=== PATIENT | male | born 1965 | race Caucasian/White ===

== ENCOUNTER 2020-02-06 15:17 | Observation (INO) | payer OTHER ==
[~2020-02-06] VITALS: Ht 190.5 cm; Wt 121.7 kg
[~2020-02-06 15:17] MED LIST: DOCU100 PO; HYDACE5; LEVO750 PO; Proventil2.5 MG/3 M INH; Tessalon Perle100 MG PO; Zithromax250 MG PO
[2020-02-06] MEDS ORDERED: POTCHL20ER PO (15:24)
[2020-02-06] MEDS ORDERED: FURO40 PO (15:24)
[2020-02-06 15:43] LABS: BASOPHILS ABSOLUTE AUTO 0.06 K/mm3 (0.00-0.23); BASOPHILS PERCENT AUTO 1 % (0-2); EOSINOPHILS ABSOLUTE AUTO 0.09 K/mm3 (0.00-0.68); EOSINOPHILS PERCENT AUTO 1 % (0-6); Hematocrit 48.9 % (37.0-53.0); Hemoglobin 14.5 g/dL (13.5-17.5); IMMATURE GRAN ABSOLUTE AUTO 0.03 K/mm3 (0.00-0.10); IMMATURE GRAN PERCENT AUTO 0 % (0-1); LYMPHOCYTES ABSOLUTE AUTO 0.86 K/mm3 (0.84-5.20); LYMPHOCYTES PERCENT AUTO 12 % (21-46); MONOCYTES ABSOLUTE AUTO 0.51 K/mm3 (0.16-1.47); MONOCYTES PERCENT AUTO 7 % (4-13); Mean Corpuscular HGB 29.5 pg (26.0-34.0); Mean Corpuscular HGB Conc 29.7 g/dL (31.5-36.5); Mean Corpuscular Volume 100 fL (80-100); Mean Platelet Volume 11.4 fL (9.1-12.4); NEUTROPHILS ABSOLUTE AUTO 5.85 K/mm3 (1.96-9.15); NEUTROPHILS PERCENT AUTO 79 % (41-73); Platelet Count 210 K/mm3 (150-400); RDW Coefficient Variation 13.6 % (11.7-14.2); RDW Standard Deviation 50.6 fL (35.1-46.3); Red Blood Cell Count 4.91 M/mm3 (4.30-5.90)
[2020-02-06 16:04] LABS: Alanine Aminotransfer (ALT/SGP 24 U/L (12-78); Albumin, Blood 2.9 g/dL (3.4-5.0); Albumin/Globulin Ratio 0.9 (0.8-1.8); Alk Phos 150 U/L (50-136); Anion Gap 2 mmol/L (6-16); Aspartate Aminotrans (AST/SGOT 23 U/L (12-37); Bilirubin, Total 0.5 mg/dL (0.1-1.0); Blood Urea Nitrogen 14 mg/dL (8-24); Bun/Creatinine Ratio 18.3 (12.0-20.0); CO2, Blood 30 mmol/L (21-32); Calcium, Blood 8.5 mg/dL (8.5-10.1); Chloride, Blood 112 mmol/L (98-108); Creatinine, Blood 0.76 mg/dL (0.60-1.20); Globulin, Blood 3.4 g/dL (2.2-4.0); Glomerular Filtration Rate >60 (60-); Glucose, Blood 132 mg/dL (70-99); Potassium, Blood 4.3 mmol/L (3.5-5.5); Sodium, Blood 144 mmol/L (136-145); Total Protein, Blood 6.3 g/dL (6.4-8.2); Troponin I 0.042 ng/mL (0.000-0.040)
--- NOTE | 2020-02-06 19:11 | NUR ---
PT ADMITTED TO PCU FROM ER FOR SVT. PT ARRIVES AT 1850. PT ALERT, DENIES CP, SOB OR OTHER SYMPTOMS. TRANSFERRED TO BED VIA SLIDER SHEET. SO STATES PT DIFFICULT TRANSFER AND USES SCOOTER AT HOME. ORIENTED TO ROOM AND CALL LIGHT. VSS. WILL REPORT TO ONCOMING NURSE.
--- NOTE | 2020-02-07 07:32 | NUR ---
SHIFT SUMMARY PATIENT PLEASENT THROUGHOUT THE NIGHT. PATIENT SPEECH DIFFICULT TO UNDERSTAND AT TIMES DUE TO GARBBLED SPEECH, HOWEVER, PATIENT IS ABLE TO MAKE HIS NEEDS KNOWN. PATIENT REFUSED REPOSITIONING MOST OF THE NIGHT. PATIENT APPEARED TO NAP ON AND OFF WELL THROUGHOUT THE NIGHT. PATIENT HAS MINIMAL MOVEMENT TO LEFT ARM AND GROSS MOVMENT TO RIGHT ARM. MINIMAL MOVMENT NOTED TO BILATERAL LOWER EXTREMETIES. VITAL SIGNS CHARTED. REPORT GIVEN TO ONCOMING RN.
[2020-02-07] MEDS ORDERED: METO25ER PO (11:01)
--- NOTE | 2020-02-07 11:09 | NUR ---
CARE ASSUMED ASSESSMENT COMPLETED, PT ALERT AND ORIENTED, DEMANDING. DENIES PAIN, SOB, CP/PRESSURE, PALPITATIONS, AND DISCOMFORT. VSS, HR 50'S SBR, METOPROLOL ADMINISTERED FOR RATE CONTROL. PT REFUSES LOVENOX. ECHO COMPLETED, DR. JONES AWARE OF RESULTS AND IN TO DISCUSS PLAN OF CARE WITH PATIENT. TOLERATED BREAKFAST WITHOUT DIFFICUTLY, RESTING IN BED WITHOUT C/O, UPDATED.
[2020-02-07] MEDS ORDERED: ASPI81CH PO (11:23)
--- NOTE | 2020-02-07 13:05 | NUR ---
DISCHARGE AT 1215 PT CONTINUES TO DENY SOB, CP, PALPITATIONS. HR 50'S SINUS, BP WNL. IV DC'D WITH TIP INTACT, PRESSURE DRESSING APPLIED. PT ASSISTED TO DRESS AND GET INTO WC WITH MAX 2 PERSON ASSIST. DC, F/U AND MED INSTRUCTIONS GIVEN TO PT AND WHO IS AT BEDSIDE, BOTH VERBALIZE UNDERSTANDING. RX'S SENT TO [facility], [facility] TO NON DESTRUCTIVE EVALUATION MANAGER LATER TODAY. PT DISCHARGED TO HOME WITH AND BROTHER IN LAW WITH BELONGINGS, BROTHER IN LAW TO DRIVE PT HOME IN THEIR WC VAN.
[2020-02-19] MEDS ORDERED: FENTANYL1 EA12 TOP (09:28)
[2020-02-19] MEDS ORDERED: HYDR1TAB94 PO (09:29)
[2020-02-19] MEDS ORDERED: NYSTOP15 GM TOP (09:30)
[2020-02-19] MEDS ORDERED: IBUP600 PO (09:30)
[2020-02-19] MEDS ORDERED: ONDA4ODT MM (09:31)
[2020-02-19] MEDS ORDERED: ACET325 PO (09:32)
[2020-02-19] MEDS ORDERED: ACIDOPHILUS1 EAC1 PO (09:32)
== END 2020-02-07 12:10 | disposition home or self-care (01) ==
LOC: ER 15:17 → PCU 15:18
PROVIDERS: Emergency Medicine; ADMIT Hospitalist
DX: I47.1 Supraventricular tachycardia (principal); R79.89 Other specified abnormal findings of blood chemistry; I69.354 Hemiplegia and hemiparesis following cerebral infarction affecting left non-dominant side; G71.11 Myotonic muscular dystrophy; I45.2 Bifascicular block; R05 Cough; J98.11 Atelectasis; E04.2 Nontoxic multinodular goiter; Z66 Do not resuscitate; Z88.0 Allergy status to penicillin; Z87.891 Personal history of nicotine dependence; Z74.01 Bed confinement status
CPT/HCPCS: 36415; 71045; 71260; 80053; 83880; 84145; 84443; 84484; 85025; 93005; 93010; 93306; 96374; 99285-25; A9270-GY; G0378; J0153; J7030; Q9967

== ENCOUNTER 2020-02-23 14:58 | Emergency (ER) | payer OTHER ==
[~2020-02-23] VITALS: Ht 190.5 cm; Wt 106.6 kg
[~2020-02-23 14:58] MED LIST changes: +ACET325 PO; +ACIDOPHILUS1 EAC1 PO; +ASPI81CH PO; +FENTANYL1 EA12 TOP; +FURO40 PO; +HYDR1TAB94 PO; +IBUP600 PO; +METO25ER PO; +NYSTOP15 GM TOP; +ONDA4ODT MM; +POTCHL20ER PO
[2020-02-23] MEDS ORDERED: METO25ER PO (15:51)
[2020-02-23] MEDS ORDERED: ASPI81CH PO (15:51)
[2020-02-23] MEDS ORDERED: POTCHL20ER PO (15:52)
[2020-02-23] MEDS ORDERED: FURO20 PO (15:52)
[2020-02-23] MEDS ORDERED: LACT PO (15:53)
[2020-02-23] MEDS ORDERED: HYDROCODONE-AC1 EAC8 PO (15:54)
[2020-02-23] MEDS ORDERED: FENTANYL1 EAC9 TOP (15:54)
== END 2020-02-23 16:36 | disposition home or self-care (01) ==
LOC: ER 14:58
DX: F43.9 Reaction to severe stress, unspecified (principal); I10 Essential (primary) hypertension; Z88.0 Allergy status to penicillin; Z79.82 Long term (current) use of aspirin; Z86.73 Personal history of transient ischemic attack (TIA), and cerebral infarction without residual deficits; Z79.899 Other long term (current) drug therapy; Z87.891 Personal history of nicotine dependence
CPT/HCPCS: 99285

== ENCOUNTER → 2020-03-14 | Outpatient (CLI) | payer OTHER ==
[~2020-03-14] MED LIST changes: +FENTANYL1 EAC9 TOP; +FURO20 PO; +HYDROCODONE-AC1 EAC8 PO; +LACT PO
[2020-03-14 10:01] LABS: BASOPHILS ABSOLUTE AUTO 0.06 K/mm3 (0.00-0.23); BASOPHILS PERCENT AUTO 1 % (0-2); EOSINOPHILS ABSOLUTE AUTO 0.15 K/mm3 (0.00-0.68); EOSINOPHILS PERCENT AUTO 3 % (0-6); Hematocrit 50.2 % (37.0-53.0); Hemoglobin 15.1 g/dL (13.5-17.5); IMMATURE GRAN ABSOLUTE AUTO 0.02 K/mm3 (0.00-0.10); IMMATURE GRAN PERCENT AUTO 0 % (0-1); LYMPHOCYTES ABSOLUTE AUTO 0.86 K/mm3 (0.84-5.20); LYMPHOCYTES PERCENT AUTO 17 % (21-46); MONOCYTES ABSOLUTE AUTO 0.46 K/mm3 (0.16-1.47); MONOCYTES PERCENT AUTO 9 % (4-13); Mean Corpuscular HGB 29.3 pg (26.0-34.0); Mean Corpuscular HGB Conc 30.1 g/dL (31.5-36.5); Mean Corpuscular Volume 98 fL (80-100); Mean Platelet Volume 12.1 fL (9.1-12.4); NEUTROPHILS ABSOLUTE AUTO 3.42 K/mm3 (1.96-9.15); NEUTROPHILS PERCENT AUTO 69 % (41-73); Platelet Count 155 K/mm3 (150-400); RDW Standard Deviation 50.4 fL (35.1-46.3); Red Blood Cell Count 5.15 M/mm3 (4.30-5.90); White Blood Cell Count 4.97 K/mm3 (4.00-11.30)
[2020-03-14 10:41] LABS: Alanine Aminotransfer (ALT/SGP 22 U/L (12-78); Albumin/Globulin Ratio 1.1 (0.8-1.8); Alk Phos 121 U/L (50-136); Anion Gap 4 mmol/L (6-16); Aspartate Aminotrans (AST/SGOT 19 U/L (12-37); Bilirubin, Total 0.5 mg/dL (0.1-1.0); Blood Urea Nitrogen 23 mg/dL (8-24); Bun/Creatinine Ratio 25.6 (12.0-20.0); CO2, Blood 36 mmol/L (21-32); Calcium, Blood 8.9 mg/dL (8.5-10.1); Chloride, Blood 103 mmol/L (98-108); Globulin, Blood 2.7 g/dL (2.2-4.0); Glomerular Filtration Rate >60 (60-); Glucose, Blood 102 mg/dL (70-99); Sodium, Blood 143 mmol/L (136-145); Total Protein, Blood 5.7 g/dL (6.4-8.2)
[2020-03-14 10:46] LABS: Anion Gap 4 mmol/L (6-16); Blood Urea Nitrogen 23 mg/dL (8-24); Bun/Creatinine Ratio 25.4 (12.0-20.0); CO2, Blood 36 mmol/L (21-32); Calcium, Blood 9.1 mg/dL (8.5-10.1); Chloride, Blood 103 mmol/L (98-108); Creatinine, Blood 0.91 mg/dL (0.60-1.20); Glomerular Filtration Rate >60 (60-); Glucose, Blood 100 mg/dL (70-99); Phosphorus, Blood 2.9 mg/dL (2.5-4.9); Sodium, Blood 143 mmol/L (136-145)
== END | disposition home or self-care (01) ==
LOC: LAB RH 08:06 → EDSTATUS 09:48
PROVIDERS: Family Medicine
DX: E87.70 Fluid overload, unspecified (principal); E11.51 Type 2 diabetes mellitus with diabetic peripheral angiopathy without gangrene; B99.9 Unspecified infectious disease
CPT/HCPCS: 80053; 80069; 83036; 83880; 84100; 85025

== ENCOUNTER → 2020-03-22 | Outpatient (CLI) | payer OTHER ==
[2020-03-22 12:58] LABS: BASOPHILS ABSOLUTE AUTO 0.06 K/mm3 (0.00-0.23); BASOPHILS PERCENT AUTO 1 % (0-2); EOSINOPHILS ABSOLUTE AUTO 0.24 K/mm3 (0.00-0.68); EOSINOPHILS PERCENT AUTO 5 % (0-6); Hematocrit 51.3 % (37.0-53.0); Hemoglobin 15.2 g/dL (13.5-17.5); IMMATURE GRAN ABSOLUTE AUTO 0.06 K/mm3 (0.00-0.10); IMMATURE GRAN PERCENT AUTO 1 % (0-1); LYMPHOCYTES ABSOLUTE AUTO 0.61 K/mm3 (0.84-5.20); LYMPHOCYTES PERCENT AUTO 12 % (21-46); MONOCYTES ABSOLUTE AUTO 0.52 K/mm3 (0.16-1.47); MONOCYTES PERCENT AUTO 10 % (4-13); Mean Corpuscular HGB 29.5 pg (26.0-34.0); Mean Corpuscular HGB Conc 29.6 g/dL (31.5-36.5); Mean Corpuscular Volume 99 fL (80-100); Mean Platelet Volume 12.6 fL (9.1-12.4); NEUTROPHILS ABSOLUTE AUTO 3.71 K/mm3 (1.96-9.15); NEUTROPHILS PERCENT AUTO 71 % (41-73); Platelet Count 103 K/mm3 (150-400); RDW Coefficient Variation 15.1 % (11.7-14.2); RDW Standard Deviation 55.6 fL (35.1-46.3); Red Blood Cell Count 5.16 M/mm3 (4.30-5.90)
[2020-03-22 14:23] LABS: Alanine Aminotransfer (ALT/SGP 16 U/L (12-78); Albumin/Globulin Ratio 1.2 (0.8-1.8); Alk Phos 119 U/L (50-136); Anion Gap 5 mmol/L (6-16); Aspartate Aminotrans (AST/SGOT 13 U/L (12-37); Bilirubin, Total 0.6 mg/dL (0.1-1.0); Blood Urea Nitrogen 19 mg/dL (8-24); Bun/Creatinine Ratio 17.9 (12.0-20.0); CO2, Blood 34 mmol/L (21-32); Calcium, Blood 8.6 mg/dL (8.5-10.1); Chloride, Blood 103 mmol/L (98-108); Creatinine, Blood 1.06 mg/dL (0.60-1.20); Globulin, Blood 2.5 g/dL (2.2-4.0); Glomerular Filtration Rate >60 (60-); Glucose, Blood 102 mg/dL (70-99); Potassium, Blood 3.9 mmol/L (3.5-5.5); Sodium, Blood 142 mmol/L (136-145); Total Protein, Blood 5.5 g/dL (6.4-8.2)
== END | disposition home or self-care (01) ==
LOC: EDSTATUS 09:51 → LAB RH 11:07
PROVIDERS: Family Medicine
DX: I69.353 Hemiplegia and hemiparesis following cerebral infarction affecting right non-dominant side (principal); G71.11 Myotonic muscular dystrophy; E88.81 Metabolic syndrome and other insulin resistance; E11.9 Type 2 diabetes mellitus without complications
CPT/HCPCS: 80053; 83880; 85025

== ENCOUNTER → 2020-03-29 | Outpatient (CLI) | payer OTHER ==
[2020-03-29 09:18] LABS: BASOPHILS ABSOLUTE AUTO 0.05 K/mm3 (0.00-0.23); BASOPHILS PERCENT AUTO 1 % (0-2); EOSINOPHILS ABSOLUTE AUTO 0.26 K/mm3 (0.00-0.68); EOSINOPHILS PERCENT AUTO 6 % (0-6); Hematocrit 51.8 % (37.0-53.0); Hemoglobin 15.6 g/dL (13.5-17.5); IMMATURE GRAN ABSOLUTE AUTO 0.05 K/mm3 (0.00-0.10); IMMATURE GRAN PERCENT AUTO 1 % (0-1); LYMPHOCYTES ABSOLUTE AUTO 0.84 K/mm3 (0.84-5.20); LYMPHOCYTES PERCENT AUTO 19 % (21-46); MONOCYTES ABSOLUTE AUTO 0.46 K/mm3 (0.16-1.47); MONOCYTES PERCENT AUTO 11 % (4-13); Mean Corpuscular HGB 29.4 pg (26.0-34.0); Mean Corpuscular HGB Conc 30.1 g/dL (31.5-36.5); Mean Corpuscular Volume 98 fL (80-100); Mean Platelet Volume 12.3 fL (9.1-12.4); NEUTROPHILS ABSOLUTE AUTO 2.69 K/mm3 (1.96-9.15); NEUTROPHILS PERCENT AUTO 62 % (41-73); Platelet Count 89 K/mm3 (150-400); RDW Coefficient Variation 15.9 % (11.7-14.2); RDW Standard Deviation 57.7 fL (35.1-46.3); White Blood Cell Count 4.35 K/mm3 (4.00-11.30)
[2020-03-29 09:52] LABS: Alanine Aminotransfer (ALT/SGP 15 U/L (12-78); Albumin/Globulin Ratio 1.2 (0.8-1.8); Alk Phos 123 U/L (50-136); Anion Gap 4 mmol/L (6-16); Aspartate Aminotrans (AST/SGOT 20 U/L (12-37); Bilirubin, Total 0.8 mg/dL (0.1-1.0); Blood Urea Nitrogen 15 mg/dL (8-24); Bun/Creatinine Ratio 18.8 (12.0-20.0); CO2, Blood 36 mmol/L (21-32); Calcium, Blood 9.1 mg/dL (8.5-10.1); Chloride, Blood 103 mmol/L (98-108); Globulin, Blood 2.6 g/dL (2.2-4.0); Glomerular Filtration Rate >60 (60-); Glucose, Blood 95 mg/dL (70-99); Potassium, Blood 4.5 mmol/L (3.5-5.5); Sodium, Blood 143 mmol/L (136-145); Total Protein, Blood 5.6 g/dL (6.4-8.2)
== END | disposition home or self-care (01) ==
LOC: LAB RH 07:39 → EDSTATUS 11:12
PROVIDERS: Family Medicine
DX: G71.11 Myotonic muscular dystrophy (principal); I10 Essential (primary) hypertension
CPT/HCPCS: 80053; 83880; 85025